=== PATIENT | male | born 2000 | race African-American/Black ===

== ENCOUNTER 2021-09-06 12:57 | Emergency (ER) | payer OTHER ==
[~2021-09-06 12:57] MED LIST: Iopamidol-370 76% 500 ML 1 ML ONE
[2021-09-06 13:48] LABS: #Eosinphils 0.4 thou/uL (0.0-0.7); #Lymphocytes 2.2 thou/uL (1.20-3.40); #Monocytes 0.2 thou/uL (0.11-0.59); #Neutrophils 2.4 thou/uL (1.40-6.50); %Basophils 0.9 % (0.0-1.0); %Eosinophils 6.9 % (0.0-10.0); %Lymphocytes 41.5 % (28.0-48.0); %Monocytes 4.5 % (0.0-4.0); %Neutrophils 46.2 % (31.0-61.0); Hemoglobin 17.5 g/dL (14.0-18.0); Mean Corpuscular HGB CONC 35.1 g/dL (32.0-36.0); Mean Corpuscular Hemoglobin 33.1 pg (25.0-35.0); Mean Corpuscular Volume 94.3 fL (78.0-98.0); Mean Platelet Volume 7.3 fL (7.4-10.4); Platelet Count 191 thou/uL (130-400); Red Blood Cell (RBC) Count 5.28 mill/uL (4.00-5.20); White Blood Cell (WBC) Count 5.3 thou/uL (4.8-10.8)
[2021-09-06 14:11] LABS: ALT (SGPT) 34 U/L (8-55); AST (SGOT) 32 U/L (5-34); Albumin 4.7 g/dL (3.5-5.0); Alkaline Phosphatase 76 U/L (50-130); Anion Gap 9 mmol/L (10-20); BUN (Urea Nitrogen) 12 mg/dL (8.9-20.6); Bilirubin, Total 1.1 mg/dL (0.2-1.2); Calc. Creatinine Clearance 0 mL/min (70-130); Calcium 10.3 mg/dL (7.8-10.44); Carbon Dioxide 29 mmol/L (22-29); Chloride 103 mmol/L (98-107); Globulin 3.4 g/dL (2.4-3.5); Glucose 99 mg/dL (70-105); Lipase 7 U/L (8-78); Magnesium 2.1 mg/dL (1.7-2.2); Potassium 3.8 mmol/L (3.5-5.1); Protein, Total 8.1 g/dL (6.0-8.3); Sodium 137 mmol/L (136-145)
== END 2021-09-06 15:19 | disposition home or self-care (01) ==
LOC: ERS 12:57
DX: K52.9 Noninfective gastroenteritis and colitis, unspecified (principal)
CPT/HCPCS: 74177; 80053; 83690; 83735; 85025; Q9967